=== PATIENT | male | born 1980 | race Two or more races ===

== ENCOUNTER 2016-07-25 10:36 | Emergency (ER) | payer OTHER ==
[2016-07-25 10:41] VITALS: BP 140/100; PULSE 78; TEMP 98; BMI 37.5
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
== END 2016-07-25 12:51 | disposition home or self-care (01) ==
LOC: JERFT 10:36
DX: R68.84 Jaw pain (principal); Y04.2XXA Assault by strike against or bumped into by another person, initial encounter; Y93.89 Activity, other specified; Y92.89 Other specified places as the place of occurrence of the external cause; Y99.8 Other external cause status
CPT/HCPCS: 70486-TC; 99281-25

== ENCOUNTER 2016-08-19 12:40 | Emergency (ER) | payer OTHER ==
[2016-08-19 12:44] VITALS: BP 148/71; PULSE 84; TEMP 97.8; BMI 26.3
[2016-08-19] MEDS ORDERED: IBUPROFEN 400 MG TABLET (FP) PO ONE ×2 (13:42→13:46)
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
== END 2016-08-19 13:51 | disposition home or self-care (01) ==
LOC: JERFT 12:40
DX: M26.621 Arthralgia of right temporomandibular joint (principal)
CPT/HCPCS: 99281-25

== ENCOUNTER 2022-09-12 17:09 | Emergency (ER) | payer OTHER ==
[2022-09-12 17:25] VITALS: TEMP 98.2; BMI 26.9
[2022-09-12] MEDS ORDERED: ACETAMINOPHEN 1000 MG/100 ML BAG IVPB ONE (17:52)
[2022-09-12] MEDS ORDERED: ACETAMINOPHEN INJECTION 100 ML IVPB ONE (18:00)
[2022-09-12 18:37] LABS: BASO % 0.6 % (0-2.0); EOS % 2.4 % (0-4.5); HEMOGLOBIN 15.1 GM/dL (11.7-16.9); LYMPH % 25.2 % (8-40); MCH 30.9 pg (25.7-33.7); MCHC 35.1 g/dl (32.0-35.9); MEAN PLT VOLUME 7.1 fl (7.5-11.1); NEUT % 62.8 % (42.8-82.8); PLATELET COUNT 299 10^3/uL (134-434); RBC 4.89 M/mm3 (4.00-5.60); RDW 13.4 % (11.9-15.9); WHITE BLOOD COUNT 10.8 K/mm3 (4.0-10.0)
[2022-09-12 19:10] LABS: CALCIUM 9.5 mg/dL (8.5-10.1)
[2022-09-12 19:11] LABS: ALBUMIN 4.3 g/dl (3.4-5.0); BLOOD UREA NITROGEN 14.9 mg/dL (7-18)
[2022-09-12 19:15] LABS: BILIRUBIN,TOTAL 1.2 mg/dL (0.2-1)
[2022-09-12 19:16] LABS: TOT PROT 8.1 g/dl (6.4-8.2)
[2022-09-12 21:04] VITALS: BP 140/76; PULSE 85; RESP 18
== END 2022-09-12 21:05 | disposition home or self-care (01) ==
LOC: JER 17:09
PROC: 3E033GC Introduction of Other Therapeutic Substance into Peripheral Vein, Percutaneous Approach (ICD-10-PCS; principal; 2022-09-12)
DX: R07.9 Chest pain, unspecified (principal)
CPT/HCPCS: 71045-TC-FY; 80053; 84484; 85025; 86850; 86900; 86901; 93005; 93010; 96374; 99285-25